=== PATIENT | female | born 1955 | race Caucasian/White ===

== ENCOUNTER → 2018-09-24 | Outpatient (CLI) | payer MEDICARE, OTHER | LOC: COL.RAD 11:51 | DX: M25.552 Pain in left hip (principal); Z96.612 Presence of left artificial shoulder joint ==

== ENCOUNTER → 2018-09-29 | Outpatient (CLI) | payer MEDICARE, OTHER | LOC: COL.RAD 14:15 | DX: M25.552 Pain in left hip (principal) | CPT/HCPCS: J3301; Q9967 ==